=== PATIENT | female | born 1970 | race Caucasian/White ===

== ENCOUNTER 2023-03-22 12:29 | Outpatient (CLI) | payer BC | END 2023-03-22 12:30 | disposition home or self-care (01) | LOC: SCSMRI 12:29 | PROVIDERS: ATTEND Neurological Surgery | DX: M54.6 Pain in thoracic spine (principal); M47.814 Spondylosis without myelopathy or radiculopathy, thoracic region; M51.24 Other intervertebral disc displacement, thoracic region; G95.89 Other specified diseases of spinal cord | CPT/HCPCS: 72157 ==